=== PATIENT | female | born 1970 | race Caucasian/White ===

== ENCOUNTER → 2016-07-23 | Outpatient (CLI) | payer BC ==
--- NOTE | 2016-07-23 17:31 | RADIOLOGY REPORT PS360 ---
CT ABD PELVIS W/ CONTRAST CLINICAL INDICATION: ABDOMEN PAIN EPIGASTRIC AND MIDLINE BLOATING ORDERING PHYSICIAN: DENICE WILLIAMSON APRN PATIENT AGE: 46 years COMPARISON: None TECHNIQUE: Axial images obtained with sagittal and coronal reformats. PROCEDURE: Oral Contrast: None IV Contrast: 75 mL [id number] . FINDINGS: 5 mm nodular opacity is present in the left lower lobe nonspecific. The liver, gallbladder, spleen, adrenal glands, and pancreas have an unremarkable appearance. No hydronephrosis or obstructing renal calculi are evident. A 12 mm isodensity projects off the posterior aspect of the left kidney consistent with a small cyst. No record no adenopathy or mass. There is a circumaortic left renal vein as a normal variant. Unremarkable appendix. No evidence of diverticulitis. A 2 cm isodense is present in the right adnexal region consistent with a right ovarian cyst. There is prominence of the endometrium measuring up to 12 mm in the lower uterine segment and 8 mm superiorly. Pelvic ultrasound may be of further value. No free fluid or focal inflammatory change apparent. No evidence of abdominal wall hernia. No acute bony anomalies. IMPRESSION: 1. Prominence of the endometrium which is of questioned clinical significance. Consider correlation with ultrasound. 2 cm right ovarian cyst 2. Otherwise negative CT abdomen pelvis with no acute intra-abdominal or pelvic pathology apparent. 3. Indeterminate 4 mm left lower lobe pulmonary nodule Lower thorax: No acute finding ABDOMEN: Liver: No masses or biliary dilatation. Gallbladder: Nondistended. No radio opaque stones. Pancreas: No masses or peripancreatic fluid collections. Spleen: Unremarkable. Adrenals: Unremarkable Kidneys/ureters: No masses. No renal calculi. No hydronephrosis. No perinephric fluid collections. No ureteral dilatation or obvious ureteral calculi. Stomach bowel: Nondistended. No obvious mass or thickening. Appendix: No evidence of appendicitis. PELVIS: Reproductive: Unremarkable Bladder: Nondistended. No obvious stones or masses. ABDOMEN & PELVIS: Peritoneum: No abnormal fluid collections. No obvious inflammatory changes. No free air. Lymph nodes: No enlarged lymph nodes apparent. Vasculature: No evidence of abdominal aortic aneurysm. No retroperitoneal hemorrhage evident. Bones: No acute fracture IMPRESSION: Negative, no acute intra-abdominal or pelvic pathology apparent
== END ==
LOC: RAD 07:26
DX: R10.9 Unspecified abdominal pain (principal)
CPT/HCPCS: Q9967